=== PATIENT | female | born 1945 | race Caucasian/White ===

== ENCOUNTER 2024-11-02 15:05 | Inpatient (IN) | payer MEDICARE, MEDICAID ==
[~2024-11-02] VITALS: Ht 162.6 cm; Wt 54.5 kg
[2024-11-02] VITALS (11 sets, daily range): BP systolic 138–166; BP diastolic 61–81; PULSE 67–87; RESP 15–20; TEMP 98–99; O2SAT 98
--- NOTE | 2024-11-02 15:34 | ELECTROCARDIOGRAPH REPORT ---
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 Jaime Murdock Measurements Intervals [place] Rate: 69 P: 73 UT: 175 QRS: 62 QRSD: 106 T: 45 QT: 431 QTc: 462 Interpretive Statements Sinus rhythm Anteroseptal infarct, age indeterminate Electronically Signed On 11-02-2024 18:18:[address] Jaime Murdock Please click the below link to view image of tracing.
[2024-11-02 16:00] LABS: BASOPHILS # (AUTO) 0.1 X10'3 (0-0.2); BASOPHILS % (AUTO) 1.9 % (0-1); EOSINOPHILS % (AUTO) 0.4 % (0-6); LYMPHOCYTES # (AUTO) 1.6 X10'3 (1.1-4.8); LYMPHOCYTES % (AUTO) 33.3 % (21-51); MEAN CORPUSCULAR HEMOGLOBIN 19.4 PG (27.0-31.0); MEAN CORPUSCULAR HGB CONC 29.2 g/dL (33.0-36.5); MEAN CORPUSCULAR VOLUME 66.7 FL (78-98); MEAN PLATELET VOLUME 8.6 FL (7.4-10.4); MONOCYTES # (AUTO) 0.4 X10'3 (0-0.9); MONOCYTES % (AUTO) 9.2 % (2-12); NEUTROPHILS # (AUTO) 2.6 X10'3 (1.8-7.7); NEUTROPHILS % (AUTO) 55.2 % (42-75); PLATELET COUNT 192 X10'3 (140-440); RED BLOOD COUNT 3.06 X10'6 (4.20-5.60); RED CELL DISTRIBUTION WIDTH 18.6 % (11.5-14.5); WHITE BLOOD COUNT 4.7 X10'3 (4.5-11.0)
--- NOTE | 2024-11-02 16:02 | Physician Documentation ---
History of Present Illness ~ Chief Complaint: Vaginal Bleeding Stated Complaint: ANEMIA WEAKNESS Time Seen by MD: 15:20 Mode of Arrival: EMS HPI 79-year-old female presenting for vaginal bleeding and generalized weakness. Patient states that about five days ago she had a sudden randall of vaginal bleeding. She states that she has fibroids and that at that time she had a significant amount of bleeding. Over the last five days the bleeding has eased up to the point where it is now just spotting. She states however that she feels very weak and lethargic. She is also short of breath. She went to the clinic today and had some blood test and was told that she needs to go directly to the hospital due to the fact that her hemoglobin is very low. She denies any fever, chills, burning on urination or any other associated symptoms. Medication Reconciliation Allergies: Coded Allergies: No Known Allergies (Unverified , 11/02/24) Review of Systems All Other Systems at this time: Reviewed and Negative Physical Exam Vital Signs: Temperature: 98.8, Source: Oral, Heart Rate: 72, Respiratory Rate: 18, BP: 150/80, Pulse Oximetry: 100, Weight: 120.000 Physical Exam I have reviewed the triage vitals. CONST: Well developed and well nourished. In no acute distress HENT: Head Atraumatic EYES: Pupils are equal, round and reactive to light. Normal conjunctiva NECK: Normal range of motion. Supple. CARDIO: Normal rate and regular rhythm. No murmurs, rubs, or gallops. S1, S2. PULM/CHEST: No respiratory distress. Lungs clear to auscultation. No wheeze ABD: Soft and nontender. Nondistended. Bowel sounds normal. No guarding. : Exam deferred MSK: No edema. No deformity. NEURO: Alert and oriented to person, place and time. Moving all extremities SKIN: Warm and dry. Appears slightly jaundiced PSYCH: Normal mood and affect. Good eye contact. Progress Progress Note 1850: Hospitalist paged. Results/Orders Reviewed/noted all lab results: Yes Results/Orders Vital Signs 11/02/24 11/02/24 11/02/24 11/02/24 15:13 15:25 17:11 17:33 Temp 98.8 98.4 Pulse 72 90 87 Resp 18 17 17 B/P (MAP) 150/80 146/67 (93) 155/71 Pulse Ox 100 100 O2 Flow Rate 0 11/02/24 11/02/24 11/02/24 18:05 18:16 18:35 Temp 98.5 98.9 Pulse 75 83 78 Resp 15 15 20 B/P (MAP) 138/61 138/63 (88) 142/67 Pulse Ox 98 O2 Flow Rate 0 Laboratory Tests Test 11/02/24 15:46 White Blood Count 4.7 Red Blood Count 3.06 L Hemoglobin 6.0 *L Hematocrit 20.4 *L Mean Corpuscular Volume 66.7 L Mean Corpuscular Hemoglobin 19.4 L Mean Corpuscular Hemoglobin Concent 29.2 L Red Cell Distribution Width 18.6 H Platelet Count 192 Mean Platelet Volume 8.6 Neutrophils (%) (Auto) 55.2 Lymphocytes (%) (Auto) 33.3 Monocytes (%) (Auto) 9.2 Eosinophils (%) (Auto) 0.4 Basophils (%) (Auto) 1.9 H Neutrophils # (Auto) 2.6 Lymphocytes # (Auto) 1.6 Monocytes # (Auto) 0.4 Eosinophils # (Auto) 0.0 Basophils # (Auto) 0.1 CBC Comment Platelet Estimate Large Platelets Moderate Red Blood Cell Morphology Perf Basophilic Stippling Anisocytosis 2+ Microcytosis 2+ Stomatocytes 1+ Schistocytes Few Prothrombin Time 10.6 INR International Normalized Ratio 1.0 Activated Partial Thromboplast Time 20 L Fibrinogen 244 Coagulation Comments Coagulation Clinical Comments Sodium Level 138 Potassium Level 3.6 Chloride Level 105 Carbon Dioxide Level 27.5 Anion Gap 6 L Blood Urea Nitrogen 12 Creatinine 0.64 Estimated GFR/1.73 m2 90 BUN/Creatinine Ratio 18.8 Glucose Level 92 Calcium Level 8.3 L Magnesium Level 2.0 Total Bilirubin 0.4 Aspartate Amino Transf (AST/SGOT) 15 Alanine Aminotransferase (ALT/SGPT) 22 Alkaline Phosphatase 60 Troponin I High Sensitivity 11 Total Protein 6.3 L Albumin 3.6 Globulin 2.7 Albumin/Globulin Ratio 1.3 Chemistry Comments EKG/XRAY/CT/US/VASC/MRI EKG : Additional Comment EKG interpreted by MAMADOU Hawthorne shows normal sinus rhythm at a rate of 69, normal axis, no ND intervals. No ischemia Ultrasound : Impression EXAM: US Pelvis Transabdominal and Transvaginal, Complete CLINICAL INDICATION: vaginal bleeding TECHNIQUE: Real-time complete transabdominal and transvaginal pelvic ultrasound with image documentation. Transvaginal imaging was used for better evaluation of the endometrium and adnexa. COMPARISON: None FINDINGS: UTERUS/CERVIX: Multiple uterine fibroids, largest measuring up to 4.9 cm. Normal endometrial stripe thickness. The uterus measures 7.4 x 5.1 x 5.7 cm. RIGHT OVARY: Unremarkable. Normal blood flow. The right ovary measures 2.2 x 1.1 x 1.9 cm. LEFT OVARY: Left ovary not visualized. FREE FLUID: No free fluid. BLADDER: Unremarkable as visualized. Wall is normal thickness for degree of distention. OTHER FINDINGS: . . IMPRESSION: Multiple uterine fibroids, largest measuring up to 4.9 cm. Medical Decision Making Additional Comment 79-year-old female presenting with acute blood loss anemia from a bleeding uterine fibroid. Patient's hemoglobin is down to 6.0. She was started on 2 units of PRBC transfusion. A ultrasound of the pelvis did indicate multiple uterine fibroids with one particular large one measuring 4.9 cm. The patient's bleeding has decreased but she continues to have some spotting. Given the continuous vaginal bleeding causing acute blood loss critical anemia patient will need admission for blood transfusion. I did discuss this case with Dr. Natalya Kay OBGYN at [facility]. She recommended that as the patient is hemodynamically stable and her bleeding has curbed and nearly subsided, the patient can follow up as an outpatient in her clinic. She advised that upon discharge we should arrange for follow up with her. Dr. Kay's fax number is [phone]. In the meantime we will admit the patient for blood transfusion and monitoring. Departure Time of Disposition: 18:50 Disposition: 09 ADMITTED INPATIENT Admitted to Inpatient Unit: yes, to hospitalist Admission Level of Care: Med/Surg with Tele Impression: Primary Impression: Vaginal bleeding Additional Impressions: Anemia Qualified Codes: D64.9 - Anemia, unspecified Uterine fibroid Qualified Codes: D25.9 - Leiomyoma of uterus, unspecified Condition: Fair Referrals: NO PRIMARY CARE PROVIDER (PCP) Critical Care Note Total Time (mins): 72 Critical Care Note The very real possibility of a deterioration of this patient's condition required the highest level of my preparedness for sudden, emergent intervention. I provided critical care services, which included medication orders, frequent reevaluations of the patient's condition and response to treatment, ordering and reviewing test results, and discussing the case with various consultants. Excludes time spent performing separately billable procedures. The critical care time associated with the care of the patient was. Signature Scribe Signature: Scribed for Jaime Murdock MD by Danay Brown . 11/02/24 19:24 Attestation: - JIE HAWTHORNE MD Nov 02, 2024 16:02 JAIME MURDOCK MD Nov 02, 2024 18:51 DANAY NICOLE Nov 02, 2024 19:25
[2024-11-02 16:09] LABS: HEMATOCRIT 20.4 % (35.0-45.0)
[2024-11-02 16:14] LABS: ALANINE AMINOTRANSFERASE 22 U/L (12-78); ALBUMIN 3.6 G/DL (3.4-5.0); ALBUMIN/GLOBULIN RATIO 1.3 (1.1-1.5); ALKALINE PHOSPHATASE 60 IU/L (46-116); ANION GAP 6 (8-16); ASPARTATE AMINO TRANSFERASE 15 U/L (10-37); BILIRUBIN,TOTAL 0.4 MG/DL (0.1-1.0); BLOOD UREA NITROGEN 12 MG/DL (7-18); BUN/CREATININE RATIO 18.8 (10.0-20.0); CALCIUM 8.3 MG/DL (8.5-10.1); CHLORIDE 105 MMOL/L (99-107); CREATININE 0.64 MG/DL (0.40-0.90); GLUCOSE 92 MG/DL (70-104); POTASSIUM 3.6 MMOL/L (3.5-5.1); SODIUM 138 MMOL/L (135-145); TOTAL CARBON DIOXIDE 27.5 MMOL/L (24-32); TOTAL PROTEIN 6.3 G/DL (6.4-8.2); eCRCL 64 ML/MIN; eGFR 90 ML/MIN
[2024-11-02 16:36] LABS: PROTHROMBIN TIME 10.6 SECONDS (9.0-12.0)
--- NOTE | 2024-11-02 16:52 | RADIOLOGY REPORT ---
EXAM: US Pelvis Transabdominal and Transvaginal, Complete CLINICAL INDICATION: vaginal bleeding TECHNIQUE: Real-time complete transabdominal and transvaginal pelvic ultrasound with image documenta tion. Transvaginal imaging was used for better evaluation of the endometrium and adnexa. COMPARISON: None FINDINGS: UTERUS/CERVIX: Multiple uterine fibroids, largest measuring up to 4.9 cm. Normal endometrial strip e thickness. The uterus measures 7.4 x 5.1 x 5.7 cm. RIGHT OVARY: Unremarkable. Normal blood flow. The right ovary measures 2.2 x 1.1 x 1.9 cm. LEFT OVARY: Left ovary not visualized. FREE FLUID: No free fluid. BLADDER: Unremarkable as visualized. Wall is normal thickness for degree of distention. OTHER FINDINGS: . . IMPRESSION: Multiple uterine fibroids, largest measuring up to 4.9 cm.
[2024-11-02 17:12] LABS: ANISOCYTOSIS 2+; MICROCYTOSIS 2+
[2024-11-02 17:13] LABS: LARGE PLATELETS MODERATE; SCHISTOCYTES FEW; STOMATOCYTES 1+
[2024-11-02 17:56] LABS: APTT 20 SECONDS (22-32); FIBRINOGEN 244 MG/DL (177-424)
[2024-11-02] MEDS ORDERED: potassium Cl 40MEQ/1/2NS 520ml 520 ML IV PRN (20:40)
[2024-11-02] MEDS ORDERED: potassium Cl 20 mEq SR tablet PO PRN ×2 (20:40)
[2024-11-02] MEDS ORDERED: ondansetron/PF 4mg/2ml inj IV PRN (20:40)
[2024-11-02] MEDS ORDERED: mag hydrox/Alum hydrox/simeth 30ml oral suspension PO PRN (20:40)
[2024-11-02] MEDS ORDERED: magnesium sulf-water 4G/100mL 100 ML IV PRN (20:40)
[2024-11-02] MEDS ORDERED: morphine 2 MG/ML inj. syringe IV PRN (20:40)
[2024-11-02] MEDS ORDERED: magnesium sulf-water 2g/50mL 50 ML IV PRN (20:40)
[2024-11-02] MEDS ORDERED: acetaminophen 325mg tablet PO PRN (20:40)
[2024-11-02] MEDS ORDERED: magnesium Cl slow-release 64mg tablet PO PRN (20:40)
[2024-11-02] MEDS ORDERED: magnesium hydroxide 30ml (MOM) UD suspension PO PRN (20:40)
[2024-11-02 21:11] LABS: PRO BRAIN NATRIURETIC PEPTIDE 149 PG/ML (0-450)
--- NOTE | 2024-11-02 21:47 | HISTORY AND PHYSICAL-Residence ---
History & Physical Providers to CC Resident Creating Document: FAHAD CALVIN, RES ~ History of Present Illness Reason for Admit\Complaint: Severe anemia, uterine fibroids History of Present Illness 79-year-old female with past medical history of uterine fibroids was brought in via EMS from her clinic after she was found to to have severe anemia. The patient complains of heavy bleeding per vagina five days ago that eventually came down over the next three days and is currently manifestation as intermittent spotting. She reports a history of vaginal bleeding because of uterine fibroids since the last one year and has been having intermittent episodes of spotting and heavy postmenopausal bleeding but the episode five days ago was more severe than her usual. With the last four days she also complains of increased fatigability and tiredness. She reports reports that she had an episode of syncope four days ago when she tried getting up from her bed in the middle of the night during which she hit her head and lost consciousness for a while. The patient initially thought that her symptoms would get better once her bleeding was controlled but due to progressive worsening of her symptoms she decided to go to the clinic today. She also complains of a burning micturition since the last five days. She denied any fever or chills recently. The patient states that the bleeding per vagina is also accompanied by cramping lower abdominal pain which is controlled with Advil. She states that she has been trying natural therapy and a natural medicine and has not seen a physician or ion exchange operator over the last few years. She does not take any medication at home. The ER physician discussed the case with KAIT Cutler at [facility]. As per the ion exchange operator recommendation the patient was hemodynamically stable and her bleeding has a subsided. Per the ER physician the ion exchange operator reported that the patient is in no emergent need for transfer or intervention and advised follow up in the outpatient clinic after discharge. Dr. Kay's fax number is [phone]. Allergies: Coded Allergies: No Known Allergies (Unverified , 11/02/24) Past Medical History Past Medical History Uterine fibroids Past Surgical History Surgical History Comment 3x Past Social History Social History Comment Denies smoking or any recreational drug use. Occasional alcohol use. Lives at home alone. ROS All Other Systems: Reviewed and Negative ROS As stated above in the HPI, otherwise all systems are reviewed and negative. Exam Vitals: Vital Signs Date Time Temp Pulse Resp B/P (MAP) Pulse Ox O2 Delivery O2 Flow Rate FiO2 11/02/24 21:15 98.4 72 16 150/73 11/02/24 20:06 100 0 General: General: Awake and Alert, no acute distress. HEENT: Conjunctiva pink, Sclera clear, Mucus Membranes moist. Neck: Supple without masses and tenderness. Resp: Unlabored. Lungs clear to auscultation bilaterally. Heart: Regular Rate and rhythm, normal S1 and S2 without murmur, rub or gallop. Abdomen: Soft and non tender no organomegaly Extremities: No cyanosis,clubbing or edema. Skin: Warm and Dry. Neurology: No focal motor or sensory deficits. Diagnostic Data Last Recorded Lab Results: 11/02/24 1546 11/02/24 1546 Diagnostic Data: Laboratory Tests Test 11/02/24 15:46 Prothrombin Time 10.6 SECONDS (9.0-12.0) INR International Normalized Ratio 1.0 INR Activated Partial Thromboplast Time 20 SECONDS (22-32) L Fibrinogen 244 MG/DL (177-424) Coagulation Comments Coagulation Clinical Comments Advance Care Planning Advanced Care planning: Add on additional 30 min Additional Plan Severe symptomatic anemia Uterine fibroid causing vaginal/postmenopausal bleeding -Pelvic ultrasound was significant for multiple fibroids largest measuring up to 4.9 cm. -The patient is currently hemodynamically stable. -Started the patient on PRBC transfusion. -We will repeat hemogram post transfusion and follow up accordingly. -Per the ER physician Dr. Murdock discussed the case with KAIT Cutler at [facility]. As per the ion exchange operator recommendation the patient was hemodynamically stable and her bleeding has a subsided. Per the ER physician the ion exchange operator reported that the patient is in no emergent need for transfer or intervention and advised follow up in the outpatient clinic after discharge. Dr. Kay's fax number is [phone]. Syncope -Most likely secondary to severe symptomatic anemia due to blood loss. -Patient has a head trauma and loss of consciousness. We will evaluate with a CT scan of the head without contrast. -EKG sinus rhythm. Telemetry monitoring for 24 hours. -Follow up with a TSH, orthostatic vitals. Burning micturition -follow up with the urine analysis. CODE STATUS: Full code DVT prophylaxis: SCDs GI prophylaxis: None Diet: Regular diet Disposition: Admitting the patient for evaluation and management of severe symptomatic anemia. Fahad Calvin MD Internal Medicine Resident, PGY-2 Date of Service: Nov 02, 2024 Billing Provider: NIKKI SIMON MD Common Visit Codes: 60388-AIOJCFX INP/OBS CARE (HIGH) Assessment/Plan Assessment Evaluated with the help of residents. Discussed with the etam at length. Reviewed note sby the resident. Agree with his assessments and plans. I also reviewed patients's record. Reviewed labs,notes and radiology. No additional points at this time FAHAD CALVIN, RES Nov 02, 2024 21:47 NIKKI SIMON MD November 03, 2024 05:06
--- NOTE | 2024-11-02 22:52 | RADIOLOGY REPORT ---
EXAM: CT CT HEAD INDICATION: fall, trauma to head, LOC TECHNIQUE: CT of the head without intravenous contrast. Radiation Dose : 1. Head: CT Dose: CTDI volume is 56 mGy. Dose-length product is 993 mGy*cm The dose indicators for CT are the volume Computed Tomography (CT) Dose Index (CTDIvol) and the Dose Length Product (DLP), and are measured in units of mGy and mGy-cm, respectively. These indicators are not patient dose, but values generated from the CT scanner acquisition factors. The report includes radiation exposure data for exposures received during this examination. COMPARISON: None FINDINGS: There is no evidence of acute intracranial hemorrhage, extra-axial collection, mass effect, midline s hift, herniation or hydrocephalus. The ventricles, sulci and cisterns are age appropriate. The lerma-white differentiation is intact. Patchy periventricular and subcortical white matter hypoattenuation is nonspecific but may be related to small vessel ischemic disease. The visualized paranasal sinuses and mastoid air cells are clear. The surrounding soft tissues and osseous structures are unremarkable. IMPRESSION: 1. No acute intracranial abnormality. Radiation optimization: All CT scans at this facility use at least one of these dose optimization zoran hniques: automated exposure control mA and/or kV adjustment per patient size (includes targeted exam s where dose is matched to clinical indication) or iterative reconstruction.
[2024-11-03 00:30] VITALS: BP 164/76; PULSE 64; RESP 15; TEMP 98.2
[2024-11-03 01:00] LABS: BILIRUBIN,URINE NEGATIVE (Neg); CLARITY,URINE CLEAR (Clear); COLOR,URINE YELLOW (Yellow); GLUCOSE, URINE NEGATIVE (Neg); KETONES,URINE 15 mg/dl (Neg); LEUKOCYTE ESTERASE ,URINE TRACE (Neg); NITRITES, URINE NEGATIVE (Neg); OCCULT BLOOD,URINE LARGE (Neg); PROTEIN,URINE NEGATIVE (Neg); UROBILINOGEN,URINE 0.2 E.U/dL (0.2-1.0)
[2024-11-03 01:09] LABS: UA COLLECTION TYPE CLN CATCH MIDSTREAM
[2024-11-03 01:11] LABS: BACTERIA,URINE FEW /HPF (Neg); RBC,URINE 20-50 /HPF (0-2); SQUAMOUS EPITHELIAL CELL,UR FEW /LPF (FEW)
[2024-11-03 01:12] LABS: MUCUS STRANDS FEW /LPF (Neg)
[2024-11-03 02:00] VITALS: BP 141/61; PULSE 67; RESP 19; TEMP 98.3; O2SAT 96
[2024-11-03 05:10] LABS: BASOPHILS # (AUTO) 0.1 X10'3 (0-0.2); BASOPHILS % (AUTO) 1.3 % (0-1); EOSINOPHILS # (AUTO) 0.1 X10'3 (0-0.9); HEMATOCRIT 29.4 % (35.0-45.0); HEMOGLOBIN 9.3 g/dl (12.0-16.0); LYMPHOCYTES # (AUTO) 2.8 X10'3 (1.1-4.8); LYMPHOCYTES % (AUTO) 48.1 % (21-51); MEAN CORPUSCULAR HEMOGLOBIN 23.7 PG (27.0-31.0); MEAN CORPUSCULAR HGB CONC 31.6 g/dL (33.0-36.5); MEAN CORPUSCULAR VOLUME 74.9 FL (78-98); MEAN PLATELET VOLUME 9.5 FL (7.4-10.4); MONOCYTES # (AUTO) 0.8 X10'3 (0-0.9); MONOCYTES % (AUTO) 13.5 % (2-12); NEUTROPHILS # (AUTO) 2.1 X10'3 (1.8-7.7); NEUTROPHILS % (AUTO) 36.1 % (42-75); PLATELET COUNT 171 X10'3 (140-440); RED BLOOD COUNT 3.92 X10'6 (4.20-5.60); RED CELL DISTRIBUTION WIDTH 24.4 % (11.5-14.5); WHITE BLOOD COUNT 5.8 X10'3 (4.5-11.0)
[2024-11-03 05:24] LABS: ALANINE AMINOTRANSFERASE 20 U/L (12-78); ALBUMIN 3.4 G/DL (3.4-5.0); ALBUMIN/GLOBULIN RATIO 1.3 (1.1-1.5); ALKALINE PHOSPHATASE 57 IU/L (46-116); ANION GAP 9 (8-16); ASPARTATE AMINO TRANSFERASE 14 U/L (10-37); BLOOD UREA NITROGEN 9 MG/DL (7-18); BUN/CREATININE RATIO 12.9 (10.0-20.0); CALCIUM 8.4 MG/DL (8.5-10.1); CHLORIDE 109 MMOL/L (99-107); GLUCOSE 86 MG/DL (70-104); MAGNESIUM 2.2 MG/DL (1.5-2.4); POTASSIUM 3.9 MMOL/L (3.5-5.1); SODIUM 143 MMOL/L (135-145); TOTAL CARBON DIOXIDE 25.2 MMOL/L (24-32); eCRCL 58 ML/MIN; eGFR 81 ML/MIN
[2024-11-03 06:00] VITALS: BP 155/77; PULSE 70; RESP 16; TEMP 97.7; O2SAT 97
[2024-11-03] MEDS: CefTRIAXone/D5W-Rocephin 1gm 50 ML IV SCH (06:37)
[2024-11-03 07:00] VITALS: BP 100/52; PULSE 56; RESP 18; TEMP 97.3; O2SAT 93
[2024-11-03] MEDS: docusate sod 100mg capsule PO SCH (07:36)
[2024-11-03] MEDS: K and/or MAG REPLACEMENT MC SCH (07:36)
[2024-11-03] MEDS ORDERED: normal saline 1000ml 1,000 ML IV SCH (07:55)
[2024-11-03] MEDS ORDERED: normal saline 500ml IV soln 500 ML IV ONE (07:55)
[2024-11-03] MEDS ORDERED: LACT1CAP26 PO (12:02)
[2024-11-03] MEDS ORDERED: SULF-14 PO (12:02)
[2024-11-03 12:15] LABS: BASOPHILS # (AUTO) 0.1 X10'3 (0-0.2); BASOPHILS % (AUTO) 1.4 % (0-1); EOSINOPHILS % (AUTO) 0.7 % (0-6); HEMATOCRIT 30.4 % (35.0-45.0); HEMOGLOBIN 9.3 g/dl (12.0-16.0); LYMPHOCYTES # (AUTO) 1.9 X10'3 (1.1-4.8); LYMPHOCYTES % (AUTO) 39.9 % (21-51); MEAN CORPUSCULAR HGB CONC 30.7 g/dL (33.0-36.5); MEAN CORPUSCULAR VOLUME 74.9 FL (78-98); MEAN PLATELET VOLUME 8.6 FL (7.4-10.4); MONOCYTES # (AUTO) 0.7 X10'3 (0-0.9); MONOCYTES % (AUTO) 13.7 % (2-12); NEUTROPHILS # (AUTO) 2.2 X10'3 (1.8-7.7); NEUTROPHILS % (AUTO) 44.3 % (42-75); PLATELET COUNT 179 X10'3 (140-440); RED BLOOD COUNT 4.06 X10'6 (4.20-5.60); RED CELL DISTRIBUTION WIDTH 24.4 % (11.5-14.5); WHITE BLOOD COUNT 4.9 X10'3 (4.5-11.0)
--- NOTE | 2024-11-03 18:24 | DISCHARGE SUMMARY-Residence ---
Discharge Summary Providers to CC Resident Creating Document: STEVENDMITRIY, RES ~ Discharge Summary Admission Diagnosis: Severe anemia,uterine fibroids Hospital Course DATE OF ADMISSION: 11/02/2024 DATE OF DISCHARGE: 11/03/2024 Discharge Diagnosis\Comment: #Symptomatic severe anemia including syncope from menorrhagia due to uterine fibroids #Lower UTI Operations\Procedures: None Consultants: KAIT Cottrell at [facility] KAIT Paige Complications: NOne Condition on DC: Stable New Medications: Lactobacillus Rhamnosus (Culturelle) 10 Billion Cell Capsule 1 CAP PO DAILY for 14 Days, #14 CAP 0 Refills Sulfamethoxazole/Trimethoprim SS Tab* (Bactrim SS Tablet*) 400 Mg-80 Mg Tablet 1 TAB PO Q12H for 7 Days, #14 TAB Discharge Summary: A 79-year-old female with a past medical history of chronic uterine fibroids complicated with chronic anemia and history of three miscarriages presented with symptoms from her severe anemia and passing uterine tissues along with painful menorrhagia after she visited to her clinic where she was advised to go to the ER. Hospital course: Patient was admitted to the hospital for the possible blood transfusions therapy and workup for the severe symptomatic anemia complicated from the uterine fibroids induced menorrhagia to control the bleeding and her lower urinary tract infection symptoms. She has been having uterine tissues regarding pieces of fibroids along with the menorrhagia which is her 2nd time associated with lower abdominal pain and syncope four days ago. In ER, ER physician discussed the case [facility] stated that patient is hemodynamically stable and a bleeding was subsided down and controlled for which the patient does not need any emergent transfer or gynecological intervention at the moment, advised to follow up in the outpatient clinic after discharge. On the hospital floor, patient was given 2 units of O negative and recheck hemoglobin level showed 9.3 from 6. She underwent pelvic ultrasound which showed significant Multiple uterine fibroids, largest measuring up to 4.9 cm. And she underwent head CT scan without IV contrast on 11/02/2024 for her syncope episode showed No acute intracranial abnormality. Patient was hemodynamically stable after PRBC's transfusion for 2 units. In the morning, the patient menorrhagia and uterine fibroids were discussed with Dr. Murdock for further management and who suggested to follow his clinic in outpatient setting after discharge. For her lower urinary tract symptoms including dysuria and urine showed positive leukocyte esterase and WBC 5-10 for which she was treated with IV ceftriaxone and discharged with oral Bactrim double S. Today, all of her labs were review including rechecked CBC showed stabilized and normalized hemoglobin 9.3, platelet count 179, PT 10.6 INR one, APTT 20, fibrinogen 244, creatinine 0.7. All of her vitals were stabled with temp 97.3 F, AL 56/minute, RR 18/minute, BP under over 52 mm Hg, pulse oximetry 93% on room air. On exam, General: Well alert, well oriented, not confused, not agitated, not in acute distress, well cooperated during the physical. HEENT: Conjunctive are pale, sclerae clear, no icterus, pupil is equal in both sides, reactive to light, no ear discharge, no pharyngeal erythema or an edema, mouth and lips are slightly dry. Neck: Supple, no JVD, no lymphadenopathy and thyromegaly. 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 Murdock 11/07/24, at 1100am. It is very important that you keep this appointment. Call his office if you have any concerns . - Return to the ER immediately for the uncontrolled heavy vaginal bleeding etc -continue taking PO Bactrim for nexgt 7 days for UTI -Follow up with PCP in a week after discharge Resident attestation: Patient was seen and examined with attending MD, Dr. Candice HARRIS MD Internal Medicine Resident, PGY2 [facility] *Problems/Diagnosis: (1) Menorrhagia Status: Resolved (2) Uterine fibroid Status: Chronic (3) Anemia Status: Chronic Total Time Spent on D/C: > 30 Minutes Date of Service: November 03, 2024 Billing Provider: JENNIFER SANTOS MD Common Visit Codes: 77594-UEY/OBS DISCH DAY >30min Problem Qualifiers (1) Uterine fibroid: Uterine leiomyoma location: unspecified location Qualified Codes: D25.9 - Leiomyoma of uterus, unspecified (2) Anemia: Anemia type: unspecified type Qualified Codes: D64.9 - Anemia, unspecified STEVEN,TIN, RES November 03, 2024 18:24 JENNIFER SANTOS MD November 03, 2024 20:48
== END 2024-11-03 15:25 | disposition home or self-care (01) | DRG 812 ==
LOC: ER 15:06 → ED HOLD 19:31 → SUR 3N 21:35
PROVIDERS: ADMIT Internal Medicine Critical Care Medicine; ATTEND Internal Medicine
PROC: 30233N1 Transfusion of Nonautologous Red Blood Cells into Peripheral Vein, Percutaneous Approach (ICD-10-PCS; principal; 2024-11-02)
DX: D50.0 Iron deficiency anemia secondary to blood loss (chronic) (principal); D25.9 Leiomyoma of uterus, unspecified; R39.198 Other difficulties with micturition
CPT/HCPCS: 36415; 36430; 70450; 76830; 76856; 80053; 81001; 83735; 83880; 84484; 85008; 85025; 85384; 85610; 85730; 86885; 86900; 86901; 86920; 87081; 87088; 93005; 93976; 99291; G0378; J0696; J7040; P9016

== ENCOUNTER 2025-01-18 12:50 | Outpatient (CLI) | payer MEDICARE, MEDICAID ==
[~2025-01-18 12:50] MED LIST: LACT1CAP26 PO
--- NOTE | 2025-01-18 18:23 | CARDIOLOGY REPORT ---
APPROVED REPORT EXAM: Comprehensive 2D, Doppler, and color-flow Echocardiogram with saline. 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 147.6 cm/s AoV VTI 32.8 cm AO Peak GR. 8.7 mmHg AO Mean GR. 5 mmHg LVOT VTI 21.14 cm LVOT Peak Rm. 96.2 cm/s JERO (VMAX) 2.08 cm2 JERO (VTI) 2.05 cm2 Mitral Valve MV E Velocity 79.7 cm/s MV DECEL TIME 200 ms MV A Velocity 78.2 cm/s MV PHT 50 ms E/A Ratio 1.0 MVA (PHT) 4.44 cm2 TDI E/Medial E' 8.3 Tricuspid Valve TR P. Velocity 249 cm/s RAP ESTIMATE 10 mmHg TR Peak Gr. 25 mmHg RVSP 35 mmHg Pulmonary Vein S2 Velocity 63.42 cm/s PVa [id number] msec LEFT VENTRICLE Normal LV size and wall thickness. Overall systolic function is normal. LVEF is 60%. RIGHT VENTRICLE RV appears normal in size and contractility. RVSP is estimated at 35 mmHG. ATRIA Left atrium is mildly dilated. Saline study was performed with 2 IV injections of 10 ccs of agitated normal saline at rest, with cough, and with valsalva. Negative saline study for right to left flow. AORTIC VALVE Trileaflet AV appears sclerotic without stenosis. No insufficiency. MITRAL VALVE MV is thickened with mild annular thickening and no stenosis. Mild partial prolapse of posterior MV l eaflet (best appreciated in PLAX TTE) with associated mild regurgitation. TRICUSPID VALVE The tricuspid valve is normal in structure. Mild tricuspid regurgitation. PULMONIC VALVE The pulmonary valve is normal in structure. Trace pulmonic regurgitation. GREAT VESSELS The aortic root is normal in size. The ascending aorta is normal in size. The IVC is normal in size a nd collapses >50% with inspiration. PERICARDIUM There is no pericardial effusion. Other Information Study Quality: Adequate Conclusion Normal LV size and wall thickness. Overall systolic function is normal. LVEF is 60%. RV appears normal in size and contractility. RVSP is estimated at 35 mmHG. Left atrium is mildly dilated. Saline study was performed with 2 IV injections of 10 ccs of agitated normal saline at rest, with cou gh, and with valsalva. Negative saline study for right to left flow. Trileaflet AV appears sclerotic without stenosis. No insufficiency. MV is thickened with mild annular thickening and no stenosis. Mild partial prolapse of posterior MV l eaflet (best appreciated in PLAX TTE) with associated mild regurgitation. The tricuspid valve is normal in structure. Mild tricuspid regurgitation. The pulmonary valve is normal in structure. Trace pulmonic regurgitation. There is no pericardial effusion.
== END 2025-01-18 23:59 | disposition home or self-care (01) ==
LOC: CARD DIAG 12:50
PROVIDERS: ATTEND Nurse Practitioner
DX: I08.3 Combined rheumatic disorders of mitral, aortic and tricuspid valves (principal); C54.1 Malignant neoplasm of endometrium
CPT/HCPCS: 93306